=== PATIENT | male | born 1985 | race African-American/Black ===

== ENCOUNTER 2016-06-11 16:40 | Emergency (ER) | payer OTHER ==
[~2016-06-11] VITALS: Ht 182.9 cm; Wt 113.4 kg
--- NOTE | 2016-06-11 18:39 | ED HEADACHE COMPLAINT ---
History of Present Illness General Chief Complaint: Headache Stated Complaint: HEADACHE Source: patient Exam Limitations: no limitations Vital Signs & Intake/Output Vital Signs & Intake/Output Vital Signs Date Time Temp Pulse Resp B/P Pulse O2 O2 Flow FiO2 Ox Delivery Rate 06/11 193 97.8 74 16 136/63 98 Room Air 06/11 1647 97.5 71 16 138/78 97 Room Air Allergies Coded Allergies: No Known Allergies (06/11/16) Reconcile Medications Butalb/Acetaminophen/Caffeine (Fioricet 50-300-40 MG Capsule) 50 MG-300 MG-40 MG CAPSULE 1-2 TAB PO Q6P PRN HEADACHE Cyclobenzaprine HCl 10 MG TABLET 1 TAB PO TID HEADACHE Triage Note: PT STATES HE HAS BEEN HAVING A DOMINGO SINCE LAST EVENING. PT REPORTS TAKING EXCEDRIN AND THAT DIDN'T HELP. PT REPORTS HE HAS HTN AND DM. PT HAS NOT BEEN TAKING ANY MEDS FOR THOSE TWO ISSUES IN A LONG TIME. Triage Nurses Notes Reviewed? yes Onset: Abrupt Duration: day(s): (2), constant, continues in ED Timing: recent history Quality/Severity: moderate, severe No Modifying Factors: none HPI: 30-year-old male comes into emergency room with complaints of headache for the past 2 days. Patient reports headache is diffuse. Denies any vision loss. Patient reports that he has chronic vision problems that has been going on for a long time. Denies any vomiting. Denies any fever or chills. History of diabetes but he lost a lot of weight and has not been on medication. Denies any trauma to his head. No prior history of headaches or migraines diagnosis. (WAQAR REYNOLDS) Past History Travel History Traveled to [place] past 21 day No Medical History Any Pertinent Medical History? see below for history Cardiovascular: hypertension Endocrine: diabetes Surgical History Surgical History: non-contributory Psychosocial History What is your primary language Bengali Tobacco Use: Never used ETOH Use: occasional use Illicit Drug Use: denies illicit drug use Family History Hx Contributory? No (WAQAR REYNOLDS) Review of Systems Review of Systems Constitutional: Reports: no symptoms. Eyes: Reports: no symptoms. Ears, Nose, Throat, Mouth: Reports: no symptoms. Respiratory: Reports: no symptoms. Cardiovascular: Reports: no symptoms. Gastrointestinal/Abdominal: Reports: no symptoms. Genitourinary: Reports: no symptoms. Musculoskeletal: Reports: no symptoms. Skin: Reports: no symptoms. Neurological/Psychological: Reports: see HPI. Hematologic/Endocrine: Reports: no symptoms. Endocrine: Reports: no symptoms. Immunologic/Allergic: Reports: no symptoms. All Other Systems: Reviewed and Negative (WAQAR REYNOLDS) Physical Exam Physical Exam General Appearance: well developed/nourished, no apparent distress, alert, awake Head: atraumatic, normal appearance Eyes: Bilateral: normal appearance, PERRL, EOMI. Ears, Nose, Throat: normal pharynx, normal ENT inspection Neck: normal inspection, supple, full range of motion Respiratory: normal breath sounds, chest non-tender, no respiratory distress Cardiovascular: regular rate/rhythm Back: normal inspection Extremities: normal inspection, normal range of motion Cranial Nerves: normal hearing, normal speech, PERRL, finger to nose intact, han to heel intact, Coordination/Gait: normal finger to nose, normal gait Motor/Sensory: no motor/sensory deficits Skin: intact, normal color Core Measures Severe Sepsis Present: No Septic Shock Present: No (WAQAR REYNOLDS) Progress Differential Diagnosis: carotid dissection, cav sinus thromb, cluster DOMINGO, encephalitis, IC mass/tumor, intracranial Hem., meningitis, migraine DOMINGO, musculoskeletal pain, sinusitis, SSS thrombosis, subarach. Hem., tension DOMINGO, temporal arteritis, TMJ syndrome, viral cephalgia Plan of Care: Orders Procedure Date/time Status CT HEAD WO IV CONTRAST 06/11 1817 Active Diagnostic Imaging: Viewed by Me: CT Scan. Discussed w/RAD: CT Scan. Radiology Impression: EXAM TYPE: CAT - CT HEAD WO IV CONTRAST EXAMINATION: CT HEAD WITHOUT CONTRAST CLINICAL INFORMATION: Headache. Nystagmus COMPARISON: None TECHNIQUE: Contiguous axial imaging was performed from the skull base to vertex without intravenous administration of contrast. DLP: 600.71 mGy-cm FINDINGS: There is no evidence of acute intracranial hemorrhage or territorial infarction. No abnormal mass effect or midline shift is seen. [place] to white matter differentiation is well preserved. No extra-axial fluid collections are identified. The ventricles are normal in size. There is no abnormal attenuation within the brain parenchyma. The osseous structures and soft tissues are normal. The mastoid air cells and visualized portions of the paranasal sinuses are well aerated. IMPRESSION: No acute intracranial pathology. DICTATED BY: FABIEN JOHNS MD Comments: 06/11/2016 7:29:46 PM No evidence of acute findings on CT scan. Follow-up with neurologist. Return if any other concerns. No neurological deficits. Patient's fingerstick was 111 in triage. Patient clinically looks well. Nontoxic-appearing. No nuchal rigidity. Afebrile. (WAQAR REYNOLDS) Departure Departure Disposition: HOME OR SELF CARE Condition: Stable Clinical Impression Primary Impression: Headache Referrals: PATIENT HAS NO PRIMARY CARE DR (PCP/Family) Additional Instructions: Take Fioricet and Flexeril as prescribed. Follow-up with neurologist provided if symptoms persist. Return if any concerns worsening symptoms. Contact your primary care doctor. Please go over all results of today's visit with your primary care doctor. Contact your primary care doctor to let them know you were here in the emergency room. There may be nonspecific findings which may not be related to your visit today here in the emergency room but may require further evaluation and chronic monitoring by your primary care doctor. If you had a laceration today the chance of foreign body always remains. You should follow-up with your primary care doctor for recheck in 3-5 days for a wound check. If you had an x-ray done there is a chance that a fracture could have been missed on initial read and you should follow-up with your primary care doctor for repeat x-rays if symptoms persist. If your blood pressure was elevated here in the emergency room please have rechecked by her primary care doctor within the next 48 hours by your primary care doctor. If you were prescribed a narcotic here in the emergency room or any type of controlled substances you're not allowed to drive while taking this medication or operate any type of heavy machinery. Narcotics can make you feel lightheaded dizziness nausea and can cause constipation. You may need to supervisor opening and picking a stool softener. Thank you for choosing [facility] emergency room. Please return to the emergency room immediately if you have any other concerns worsening of symptoms. Departure Forms: Customer Survey General Discharge Information Prescriptions: Current Visit Scripts Butalb/Acetaminophen/Caffeine (Fioricet 50-300-40 MG Capsule) 1-2 TAB PO Q6P PRN HEADACHE #20 MG Cyclobenzaprine HCl 1 TAB PO TID #20 TAB (WAQAR REYNOLDS) PA/CARE TECHNICIAN Co-Sign Statement Statement: ED Attending supervision documentation- [] I saw and evaluated the patient. I have also reviewed all the pertinent lab results and diagnostic results. I agree with the findings and the plan of care as documented in the PA's/CARE TECHNICIAN's documentation. X I have reviewed the ED Record and agree with the PA's/CARE TECHNICIAN's documentation. [] Additions or exceptions (if any) to the PAs/CARE TECHNICIAN's note and plan are summarized below: [] (JUAN CARLOS EDDY,VIVIANA)
--- NOTE | 2016-06-11 19:03 | CT SCAN REPORT ---
EXAMINATION: CT HEAD WITHOUT CONTRAST CLINICAL INFORMATION: Headache. Nystagmus COMPARISON: None TECHNIQUE: Contiguous axial imaging was performed from the skull base to vertex without intravenous administration of contrast. DLP: 600.71 mGy-cm FINDINGS: There is no evidence of acute intracranial hemorrhage or territorial infarction. No abnormal mass effect or midline shift is seen. [place] to white matter differentiation is well preserved. No extra-axial fluid collections are identified. The ventricles are normal in size. There is no abnormal attenuation within the brain parenchyma. The osseous structures and soft tissues are normal. The mastoid air cells and visualized portions of the paranasal sinuses are well aerated. IMPRESSION: No acute intracranial pathology.
[2016-06-11] MEDS ORDERED: CYCLOBENZAPRINE10 M1 PO (19:15)
[2016-06-11] MEDS ORDERED: FIORICET 50-301 EACH PO (19:15)
[2016-06-11 19:31] VITALS: BP 136/63
== END 2016-06-11 19:31 ==
LOC: ERH 16:40
DX: R51 Headache (principal)